=== PATIENT | female | born 1950 | race Caucasian/White ===

== ENCOUNTER 2022-10-19 04:29 | Day surgery (SDC) | payer OTHER, MEDICARE ==
[2022-10-18 09:18] VITALS: BMI 34.0
[2022-10-19 07:25] VITALS: TEMP 97.6
[2022-10-19 08:54] VITALS: BP 100/52; PULSE 74; RESP 15
== END 2022-10-19 08:58 | disposition home or self-care (01) ==
LOC: JASU-ENDO 04:29
PROVIDERS: ATTEND Internal Medicine Gastroenterology
PROC: 0DBM8ZX Excision of Descending Colon, Via Natural or Artificial Opening Endoscopic, Diagnostic (ICD-10-PCS; principal; 2022-10-19 08:00)
DX: Z12.11 Encounter for screening for malignant neoplasm of colon (principal); D12.4 Benign neoplasm of descending colon; Z80.0 Family history of malignant neoplasm of digestive organs
CPT/HCPCS: 82962; 88305-TC